=== PATIENT | male | born 1970 | race Two or more races ===

== ENCOUNTER 2020-10-25 21:35 | Emergency (ER) | payer OTHER ==
[~2020-10-25] VITALS: Ht 154.9 cm; Wt 83.9 kg
[2020-10-26 00:10] VITALS: BP 150/92
== END 2020-10-26 01:41 | disposition home or self-care (01) ==
LOC: ER 21:39
DX: J03.90 Acute tonsillitis, unspecified (principal); Z20.828 Contact with and (suspected) exposure to other viral communicable diseases
CPT/HCPCS: 36415; 71045; 87426; 99284; C9803; U0003